=== PATIENT | female | born 1995 ===

== ENCOUNTER 2023-10-04 13:02 | Inpatient (IN) | payer OTHER ==
[~2023-10-04] VITALS: Ht 160 cm; Wt 75.7 kg
[2023-10-16] MEDS ORDERED: RINGERS SOLUTION,LACTATED 1,000 ML IV SCH ×2 (03:30→16:15)
[2023-10-16] MEDS ORDERED: MORPHINE SULFATE 4 MG/ML VIAL IV PRN (03:30)
[2023-10-16] MEDS ORDERED: PRENATAL TABLE1 EAC6 PO (04:09)
[2023-10-16 04:21] LABS: HEMATOCRIT 30.4 % (36.0-45.00); MEAN CELL VOLUME 76.8 fL (80.00-100.00); MEAN CORPUSCULAR HGB CONC 33.3 g/dl (32.0-36.0); PLATELET COUNT 228 K/uL (150-450); RED BLOOD COUNT 3.95 M/uL (4.00-6.00); RED CELL DISTRIBUTION WIDTH 15.2 % (11.5-14.5)
[2023-10-16 04:29] LABS: HEMOGLOBIN 10.1 g/dL (12.0-15.00); MEAN CORPUSCULAR HEMOGLOBIN 25.5 pg (27.00-32.0)
[2023-10-16 04:37] LABS: INR < 0.93; PARTIAL THROMBOPLASTIN TIME 25.2 SECONDS (22.0-34.0); PROTHROMBIN TIME 9.9 SECONDS (9.0-11.5)
[2023-10-16 04:42] LABS: ALBUMIN 3.1 gm/dL (3.4-5.0); BILIRUBIN TOTAL 0.25 mg/dL (0.3-1.2); CALCIUM 8.9 mg/dL (8.5-10.1); GFR 135.42; GLOBULINA 3.5 G/DL (2.4-3.5); POTASSIUM 3.95 mEq/L (3.5-5.1); TOTAL PROTEIN 6.6 gm/dL (6.4-8.2)
[2023-10-16 04:52] LABS: CREATININE SERUM 0.54 mg/dL (0.55-1.02)
[2023-10-16] MEDS ORDERED: OXYTOCIN 500 ML IV ONE ×2 (07:15→07:45)
[2023-10-16] MEDS ORDERED: OXYTOCIN 20 UNITS/500ML RL PIGGYBAG IV ONE ×2 (07:23→07:31)
[2023-10-16] MEDS ORDERED: MORPHINE SULFATE 4 MG/ML CARTRIDGE IV PRN ×2 (10:45→16:15)
[2023-10-16] MEDS ORDERED: OXYTOCIN 10 UNITS/ML VIAL ONE (14:38)
[2023-10-16] MEDS ORDERED: ERYTHROMYCIN BASE 1 GM TUBE OP ONE (14:38)
[2023-10-16] MEDS ORDERED: CEFAZOLIN SODIUM 1,000 MG VIAL ONE (15:39)
[2023-10-16] MEDS ORDERED: OXYTOCIN 1,000 ML IV NR (16:15)
[2023-10-16] MEDS ORDERED: ONDANSETRON HCL 2 MG/ML VIAL IV PRN (16:15)
[2023-10-16] MEDS ORDERED: MORPHINE SULFATE 4 MG/ML VIAL IV ONE (16:45)
[2023-10-16] MEDS ORDERED: SIMETHICONE 125 MG CAPSULE PO SCH (17:00)
[2023-10-16] MEDS ORDERED: GABAPENTIN 300 MG CAPSULE PO SCH (17:00)
[2023-10-16] MEDS ORDERED: KETOROLAC TROMETHAMINE 30 MG VIAL IV SCH (18:00)
[2023-10-16] MEDS ORDERED: ACETAMINOPHEN 500 MG GEL..CAP PO SCH (18:00)
[2023-10-16] MEDS ORDERED: KETOROLAC TROMETHAMINE 30 MG VIAL ONE (19:09)
[2023-10-17 07:13] LABS: HEMATOCRIT 26.4 % (36.0-45.00); MEAN CELL VOLUME 77.9 fL (80.00-100.00); MEAN CORPUSCULAR HGB CONC 33.5 g/dl (32.0-36.0); PLATELET COUNT 193 K/uL (150-450); RED BLOOD COUNT 3.39 M/uL (4.00-6.00); RED CELL DISTRIBUTION WIDTH 15.2 % (11.5-14.5)
[2023-10-17 07:15] LABS: HEMOGLOBIN 8.8 g/dL (12.0-15.00); MEAN CORPUSCULAR HEMOGLOBIN 25.9 pg (27.00-32.0)
[2023-10-17] MEDS ORDERED: KETOROLAC TROMETHAMINE 10 MG TABLET PO SCH (08:00)
[2023-10-17] MEDS ORDERED: OxyCODONE HCL 5 MG TABLET (ROXICODONE) PO PRN (08:00)
[2023-10-17] MEDS ORDERED: DOCUSATE SODIUM 100MG CAP PO SCH (09:00)
[2023-10-17] MEDS ORDERED: SOD FERRIC GLUC COMPLX/SUCROSE 125 MG in 0.9 % SODIUM CHLORIDE 100 ML IV SCH (09:00)
[2023-10-18] MEDS ORDERED: IRON FUM,PS/FOLIC/BCOMP,C NO.9 1 CAP CAPSULE PO SCH (09:34)
== END 2023-10-19 13:48 | disposition home or self-care (01) | DRG 788 ==
LOC: LDR 10-16 03:14 → O/R 10-16 03:14 → OB/GYN 10-16 17:59
PROVIDERS: Obstetrics & Gynecology; ADMIT Obstetrics & Gynecology; ATTEND Obstetrics & Gynecology
PROC: 4A1HXCZ Monitoring of Products of Conception, Cardiac Rate, External Approach (ICD-10-PCS; 2023-10-16)
PROC: 10D00Z1 Extraction of Products of Conception, Low, Open Approach (ICD-10-PCS; principal; 2023-10-16 16:00)
DX: O42.02 Full-term premature rupture of membranes, onset of labor within 24 hours of rupture (principal); O62.0 Primary inadequate contractions; Z3A.38 38 weeks gestation of pregnancy; Z37.0 Single live birth; Z20.822 Contact with and (suspected) exposure to COVID-19